=== PATIENT | male | born 1945 | race Caucasian/White ===

== ENCOUNTER 2025-02-21 08:20 | Inpatient (IN) | payer MEDICARE, OTHER ==
[~2025-02-21] VITALS: Ht 180.3 cm; Wt 84.5 kg
[2025-02-21 08:50] VITALS: PULSE 99; RESP 13; O2SAT 95
--- NOTE | 2025-02-21 09:06 | ECG ---
[facility] Test Date: 2025-02-21 Test Time: 09:04:41 Pat Name: ROSEMARIE OROFINO Department: ED Room: 0296T Gender: M Sushi Chef: JOE : 1945 Requested By: BOUCHRA COPELAND Order Number: [id number] Reading MD: Paul Zuniga Measurements Intervals [place] Rate: 88 P: 38 [place]: 171 QRS: -97 QRSD: 132 T: 8 QT: 397 QTc: 481 Interpretive Statements Sinus rhythm Right bundle branch block Inferior infarct, old Probable anterior infarct, age indeterminate Lateral leads are also involved Electronically Signed On 02-26-2025 15:46:38 PDT by Paul Zuniga Please click the below link to view image of tracing.
[2025-02-21] MEDS: SODIUM CHLORIDE 0.9% 1,000 ML IV ONE ×2 (09:07→11:00)
[2025-02-21] MEDS: PANTOPRAZOLE 40 MG/10 ML VIAL INJ IV ONE (09:20)
[2025-02-21] MEDS: ONDANSETRON HCL 4 MG/2 ML VIAL IV ONE (09:20)
--- NOTE | 2025-02-21 09:23 | ED.PDOC ---
GI ASSESSMENT HPI Comments Patient is a 79-year-old male with no significant past medical history presented to the ED with a chief complaint of rectal pain and blood in stool. Patient underwent a colonoscopy in the last week of January at the [facility] facility where a total of 30 polyps were removed from the cecum to the rectum. After the colonoscopy he to to be constipated for 3 weeks until Monday when he got enema and a lot of stool was removed. Last night patient reports to be having loose bowel movements with the associated blood. In the morning today while he was feeling his catheterization he felt dizzy following which he fell down. She also reports of having difficulty urination for the past 1 week associated with burning pain on urination. Patient denied any fever or chills. He does report of right lower quadrant abdominal pain which gets worse when he exerts pressure to pass stool or urine and has a associated rectal pain as well. Chief Complaint: Rectal Pain Time Seen by MD: 09:02 Primary Care Provider: MO Allergies: Coded Allergies: NO KNOWN ALLERGIES (Unverified , 08/15/15) Mode of Arrival: Wheelchair Past Medical History PAST MEDICAL HISTORY: Denies Surgical History: Denies all surgeries Surgical History (Other): Right knee surgery and right clavicle surgery Family History Family History: Unknown Social History Smoker: Non-Smoker Alcohol: Denies ETOH Use Drugs: Denies Drug Use Lives In: Home Constitutional: reports: fatigue, weakness EENTM: denies: blurred vision, double vision, ear bleeding, ear discharge, ear drainage, ear pain, ear ringing, eye pain, eye redness, hearing loss, mouth pain, mouth swelling, nasal discharge, nose bleeding, nose congestion, nose pain, photophobia, tearing, throat pain, throat swelling, voice changes, others Respiratory: denies: cough, hemoptysis, orthopnea, SOB at rest, shortness of breath, SOB with excertion, stridor, wheezing, others Cardiovascular: denies: chest pain, dizzy spells, diaphoresis, Dyspnea on exertion, edema, irregular heart beat, left arm pain, lightheadedness, palpitations, PND, syncope, others Gastrointestinal: reports: abdominal pain, blood streaked bowels, melena, rectal pain Genitourinary: reports: burning Neurological: reports: dizziness, fainting, weakness Musculoskeletal: denies: back pain, gout, joint pain, joint swelling, muscle pain, muscle stiffness, neck pain, others Integumetry: denies: bruises, change in color, change in hair/nails, dryness, laceration, lesions, lumps, rash, wounds, others Allergic/Immunocompromised: denies: Difficulty Healing, Frequent Infections, Hives, Itching, others Hematologic/Lymphatic: denies: anemia, blood clots, easy bleeding, easy bruising, swollen glands, others Endocrine: denies: excessive hunger, excessive sweating, excessive thirst, excessive urination, flushing, intolerance to cold, intolerance to heat, unexplained weight gain, unexplained weight loss, others Psychiatric: denies: anxiety, bipolar disorder, depression, hopeless, panic disorder, schizophrenia, sleepless, suicidal, others Physical Exam General Appearance: Mild Distress HEENT: PERRL/EOMI, Pharynx Normal Neck: Full Range of Motion, Non-Tender, Normal Respiratory: No Accessory Muscle Use, No Respiratory Distress, Normal Breath Sounds Cardiovascular: No Edema, No JVD, No Murmur, Regular Rate/Rhythm Breast Exam: Deferred Gastrointestinal: RLQ, Tenderness Genitalia: Deferred Pelvic: Deferred Rectal: Blood streaked stool, Heme positive stool, Normal rectal tone, Tenderness (anterior rectal wall boggy, tender mass) Extremities: Leg edema (Left leg edema), Slow capillary refill Neurologic: Alert, Dizziness, No Motor Deficits, No Sensory Deficits Cerebellar Function: NOT DONE Reflexes: NOT DONE Skin: Pallor Peripheral Pulses: 2+ dorsalis pedis (R); 1+ dorsalis pedis (L); 2+ Radial (R), 2+ Radial (L) Lymphatic: No Adenopathy EKG EKG : Pulse Rate (adult): 88 [place]: RAD (Extreme axis) Cardiac Rhythm: NSR Block: RBBB Hypertrophy: RVH ST: Old Was a procedure done? Was a procedure done?: No GI differential Dx Differential Diagnosis: Diverticular disease, Gastroenteritis, GI hemorrhage, Urinary Obstruction, Hypovolemia, Impaction Other Differential Diagnosis Colon polyps, prostatomegaly, colitis, diverticulitis, UTI, prostatitis X-Ray, Labs, Meds, VS Vital Signs Date Time Temp Pulse Resp B/P (MAP) Pulse Ox O2 Delivery O2 Flow Rate FiO2 02/21/25 09:04 88 02/21/25 08:50 97.6 99 13 116/74 (88) 95 97.6 02/21/25 08:50 99 13 95 Room Air* 0 21 02/21/25 08:26 97.9 117 20 103/57 (72) 94 97.9 Lab Test 02/21/25 10:11 02/21/25 09:58 02/21/25 09:11 02/21/25 09:00 Range/Units Troponin I High Sensitivity 9 10 </=54 ng/L Stool Occult Blood Positive Negative Stool Occult Blood Sample #3 Negative Urine Color Yellow Yellow Urine Clarity Turbid H Clear Urine pH 6.0 5.0-9.0 Urine Specific [place] 1.015 1.001-1.035 Urine Protein Trace H Negative Urine Ketones Negative Negative Urine Blood 3+ H Negative /uL Urine Nitrite Negative Negative Urine Bilirubin Negative Negative Urine Urobilinogen Normal Negative mg/dL Urine Leukocyte Esterase Negative Negative /uL Urine RBC 116 0 - 3 /hpf Urine WBC Clumps Present None Seen /hpf Urine Microscopic WBC 44 H 0-3 /HPF Urine Squamous Epithelial Cells Few <5 /hpf Urine Bacteria None seen None Seen /hpf Urine Creatinine 109.24 30.0-125.0 mg/dL Urine Protein/Creatinine Ratio 0.50 Urine Sodium 66 40-220 mmol/L Urine Glucose Trace Normal mg/dL Urine Total Protein 54.8 H 1-14 mg/dL White Blood Count 13.0 H 4.4-10.8 10^3/uL Red Blood Count 4.30 L 4.5-5.90 10^6/uL Hemoglobin 13.4 L 13.5-17.5 g/dL Hematocrit 40.5 L 41.0-53.0 % Mean Corpuscular Volume 94.3 80.0-100.0 fL Mean Corpuscular Hemoglobin 31.1 28.0-32.0 pg Mean Corpuscular Hemoglobin Concent 33.0 32.0-36.0 g/dL Red Cell Distribution Width 15.9 H 11.8-14.3 % Platelet Count 294 140-450 10^3/uL Mean Platelet Volume 7.2 6.9-10.8 fL Neutrophils (%) (Auto) 89.3 H 37.0-80.0 % Lymphocytes (%) (Auto) 4.1 L 10.0-50.0 % Monocytes (%) (Auto) 6.3 0.0-12.0 % Eosinophils (%) (Auto) 0.1 0.0-7.0 % Basophils (%) (Auto) 0.2 0.0-2.0 % Neutrophils # (Auto) 11.7 H 1.6-8.6 10 ^3/uL Lymphocytes # (Auto) 0.5 0.4-5.4 10 ^3/uL Monocytes # (Auto) 0.8 0-1.3 10 ^3/uL Eosinophils # (Auto) 0 0-0.8 10 ^3/uL Basophils # (Auto) 0 0-0.2 10 ^3/uL Nucleated Red Blood Cells 0.0 % Prothrombin Time 11.9 H 9.3-11.8 sec Prothrombin Time INR 1.14 0.9-1.15 Activated Partial Thromboplast Time 22.8 L 24.5-34.5 SEC Sodium Level 135 L 136-145 mmol/L Potassium Level 5.1 3.5-5.1 mmol/L Chloride Level 103 98-107 mmol/L Carbon Dioxide Level 17 L 20-31 mmol/L Anion Gap 15 5-15 Blood Urea Nitrogen 62 H 9-23 mg/dL Creatinine 3.32 H 0.700-1.30 mg/dL Glomerular Filtration Rate Calc 18 >90 mL/min BUN/Creatinine Ratio 18.7 10.0-20.0 Serum Glucose 131 H 74-106 mg/dL Lactic Acid Level 2.8 *H 0.4-2.0 mmol/L Calcium Level 9.1 8.7-10.4 mg/dL Total Bilirubin 0.4 0.2-1.0 mg/dL Aspartate Amino Transferase (AST) 28 13-40 U/L Alanine Aminotransferase (ALT) 15 7-40 U/L Alkaline Phosphatase 76 46-116 U/L Total Protein 6.5 5.7-8.2 g/dL Albumin 4.0 3.2-4.8 g/dL Lipase 30 12-53 U/L Test 02/21/25 08:43 Range/Units B-Type Natriuretic Peptide 68.69 0-100 pg/mL Current Medications Medications (Trade) Dose Ordered Sig/Ochoa Route Start Time Stop Time Status Last Admin Ondansetron HCl (Zofran) 4 mg ONCE ONCE IV 02/21/25 08:45 02/21/25 08:46 DC 02/21/25 09:20 Sodium Chloride 1,000 ml @ 1,000 mls/hr Q1H ONCE IV 02/21/25 08:45 02/21/25 09:44 DC 02/21/25 09:07 Pantoprazole Sodium (Protonix) 80 mg ONCE ONCE IV 02/21/25 08:45 02/21/25 08:46 DC 02/21/25 09:20 Patient is a 79-year-old male came to the ED with a chief complaint of rectal pain and episodes of blood in stool and an episode of syncope. Patient reported of right lower quadrant pain, dysuria, rectal pain on defecation. He appeared pale, was slightly hypotensive. Digital rectal examination revealed tender p rostate and stool occult blood positive. CT abdomen pelvis with IV contrast showed 5.5 cm abdominal aortic aneurysm, Moderate colonic diverticulosis, WBC count elevated and hemoglobin level was at 13.2 g/dL , elevated lactic acid following which vision was given 2 L of fluid and IV antibiotics. Patient had DARLING on possible underlying CKD with FENa 1.5%. Patient will need further inpatient evaluation and management for which he agrees. Time of 1ST Reevaluation: 09:46 Reevaluation 1ST: Improved Patient Education/Counseling: Diagnosis, Treatment Family Education/Counseling: No Family Present SEPSIS Sepsis Screen Date sepsis recognized/suspect: Feb 21, 2025 Time Sepsis recognized/suspect: 825 Recent Procedure: No On Antibiotic Therapy: No Respiratory Rate >20: No Heart Rate >90: Yes Temp<36 C (96.8 F) or >38.3 C: No SBP <90 or MAP <65 mmHG: No New Acute Mental Status Change: No Is the patient on CPAP, BIPAP,: No Physician Orders Chest Portable (02/21/25 08:43) Blood Culture (02/21/25 08:43) Troponin-I Hs (02/21/25 11:43) Electrocardigram (02/21/25 09:43) Electrocardigram (02/21/25 11:43) Head Without Contrast (02/21/25 08:43) Type And Screen (02/21/25 08:43) Insert/Manage Urinary Catheter QSHIFT (02/21/25 09:39) Ct Ab Pel Wo Con-No Oral Or Iv (02/21/25 09:56) Sodium Chloride 0.9% (02/21/25 11:00) Urine Bacterial Culture (02/21/25 11:06) Levofloxacin 500mg (Levaquin 500mg/ 100m (02/21/25 11:15) Metronidazole 500mg/100ml (Flagyl 500mg/ (02/21/25 11:15) Vital Signs Date Time Temp Pulse Resp B/P (MAP) Pulse Ox O2 Delivery O2 Flow Rate FiO2 02/21/25 09:04 88 02/21/25 08:50 97.6 99 13 116/74 (88) 95 97.6 02/21/25 08:50 99 13 95 Room Air* 0 21 02/21/25 08:26 97.9 117 20 103/57 (72) 94 97.9 Laboratory Tests Test 02/21/25 09:00 Lactic Acid Level 2.8 mmol/L (0.4-2.0) *H White Blood Count 13.0 10^3/uL (4.4-10.8) H Medications Medications Dose Ordered Sig/Ochoa Route Start Time Stop Time Status Last Admin Dose Admin Ondansetron HCl 4 mg ONCE ONCE IV 02/21/25 08:45 02/21/25 08:46 DC 02/21/25 09:20 Pantoprazole Sodium 80 mg ONCE ONCE IV 02/21/25 08:45 02/21/25 08:46 DC 02/21/25 09:20 Sodium Chloride 1,000 ml @ 1,000 mls/hr Q1H ONCE IV 02/21/25 08:45 02/21/25 09:44 DC 02/21/25 09:07 Departure 1 Departure Time of Disposition: 11:26 Impression: Primary Impression: Rectal bleed Additional Impressions: Acute kidney injury superimposed on CKD Urinary tract infection Colon, diverticulosis History of colon polyps Vasovagal syncope Abdominal aortic aneurysm Disposition: 09 ADMITTED INPATIENT Condition: Stable Critical Care Note Critical Care Time?: No Stability Stability form required: No Heart Score Heart Score: Heart Score Response (Comments) Value History N/A 0 EKG N/A 0 Age N/A 0 Risk Factors N/A 0 Troponin N/A 0 Total 0 ROMEO VILLANUEVA RESIDENT Feb 21, 2025 09:23
[2025-02-21 09:28] LABS: Hematocrit 40.5 % (41.0-53.0); Hemoglobin 13.4 g/dL (13.5-17.5); Mean Corpuscular Hemoglobin 31.1 pg (28.0-32.0); Mean Corpuscular Volume 94.3 fL (80.0-100.0); Nucleated Red Blood Cells % 0.0 %
[2025-02-21 09:45] LABS: Alanine Aminotransferase 15 U/L (7-40); Albumin 4.0 g/dL (3.2-4.8); Alkaline Phosphatase 76 U/L (46-116); Anion Gap 15 (5-15); Calcium 9.1 mg/dL (8.7-10.4); Chloride 103 mmol/L (98-107); Potassium 5.1 mmol/L (3.5-5.1)
[2025-02-21 09:47] LABS: INR 1.14 (0.9-1.15); Partial Thromboplastin Time 22.8 SEC (24.5-34.5); Prothrombin Time 11.9 sec (9.3-11.8)
[2025-02-21 09:51] LABS: Carbon Dioxide 17 mmol/L (20-31); Glucose 131 mg/dL (74-106); Sodium 135 mmol/L (136-145)
[2025-02-21 09:52] LABS: Lactic Acid w/Reflex 2.8 mmol/L (0.4-2.0)
[2025-02-21 10:11] LABS: BUN/Creatinine Ratio 18.7 (10.0-20.0); Blood Urea Nitrogen 62 mg/dL (9-23); Total Protein 6.5 g/dL (5.7-8.2)
[2025-02-21 10:13] LABS: Bilirubin, Total 0.4 mg/dL (0.2-1.0)
--- NOTE | 2025-02-21 10:24 | DVH ---
CHEST RADIOGRAPH Indication: abdominal pain Technique: Single frontal view of the chest was obtained COMPARISON: None FINDINGS: Lines and Tubes: None Lungs: Increased interstitial prominence Pleura: No effusion. No pneumothorax. Cardiomediastinal contours: Cardiomegaly Bones: Left clavicle plate and screw fixation. IMPRESSION: Pulmonary vascular congestion
[2025-02-21 10:28] LABS: Urine Protein, UAD TRACE (Negative); Urine WBC Clumps PRESENT /hpf (None Seen)
[2025-02-21 10:34] LABS: Lipase 30 U/L (12-53)
--- NOTE | 2025-02-21 10:42 | DVH ---
CT CT AB PEL WO CON-NO ORAL OR IV INDICATION: ABDOMINAL PAIN; BRBPR EXAM DATE: 02/21/2025 09:59 AM COMPARISON: None RADIATION DOSE: CTDIvol: 8.79 mGy, DLP: 475.62 mGy*cm PROCEDURE: Helical CT images were obtained of the abdomen and pelvis without IV contrast Sagittal and coronal reconstructions are provided. ORAL CONTRAST: None. ADDITIONAL IMAGES / REFORMATS: None All C T scans at this medical facility are performed using dose modulation techniques as appropriate to a p erformed exam including the following: Automated exposure control was utilized; adjustment of the MA and/or KV according to patient size; and use of iterative reconstruction technique. FINDINGS: LUNG BASE: Bibasilar subpleural reticulation and ground glass opacity can be seen with interstitial l rené disease. LIVER: Normal. GALLBLADDER AND BILIARY TREE: Gallstones are seen. No intra- or extrahepatic biliary ductal dilation. PANCREAS: Normal. SPLEEN: Normal. BOWEL: Moderate colonic diverticulosis. Normal appendix. ADRENALS: 1.0 cm left adrenal nodule. KIDNEYS AND URETER: Normal. BLADDER: Paige. REPRODUCTIVE ORGANS: Normal. LYMPH NODES:No lymphadenopathy. PERITONEUM: No ascites or free air. No other fluid collection. VESSELS: Scattered atherosclerotic calcifications are noted. 5.5 cm abdominal aortic aneurysm. RETROPERITONEUM: Normal. ABDOMINAL WALL: Normal. BONES: Scattered osseous degenerative changes are noted. Old compression deformity of T12, severe. IMPRESSION: 5.5 cm abdominal aortic aneurysm. Moderate colonic diverticulosis.
[2025-02-21 10:44] LABS: Protein, Urine 54.8 mg/dL (1-14)
--- NOTE | 2025-02-21 10:49 | DVH ---
EXAM: CT HEAD WITHOUT CONTRAST INDICATION: Syncope TECHNIQUE: CT of the head without intravenous contrast. Coronal and sagittal reformatted images are s ubmitted. Radiation Dose : 1. Head: CT Dose: CTDI volume is 60.1 mGy. Dose-length product is 1076.65 mGy*cm The dose indicators for CT are the volume Computed Tomography (CT) Dose Index (CTDIvol) and the Dose Length Product (DLP), and are measured in units of mGy and mGy-cm, respectively. These indicators are not patient dose, but values generated from the CT scanner acquisition factors. The report includes radiation exposure data for exposures received during this examination. All CT scans at this medical facility are performed using dose modulation techniques as appropriate to a performed exam including the following: Automated exposure control was utilized; adjustment of the MA and/or KV according to patient size; and use of iterative reconstruction technique. COMPARISON: None FINDINGS: There is no evidence of acute intracranial hemorrhage, extra-axial collection, mass effect, midline s hift, herniation or hydrocephalus. The ventricles, sulci and cisterns are age appropriate. The verde-white differentiation is intact. Partial opacification of the mastoid air cells. The paranasal sinuses are clear. No depressed calvarial fracture. The surrounding soft tissues are unremarkable. IMPRESSION: 1. No acute intracranial abnormality. 2. Partial opacification of the mastoid air cells.
[2025-02-21 11:00] VITALS: PULSE 75; RESP 18; O2SAT 92
[2025-02-21] MEDS ORDERED: ACETAMINOPHEN 325 MG TAB PO PRN (13:15)
[2025-02-21] MEDS ORDERED: HYDROcodone-ACET 5/325MG TAB PO PRN (13:15)
[2025-02-21] MEDS ORDERED: ONDANSETRON HCL 4 MG/2 ML VIAL IV PRN (13:15)
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
--- NOTE | 2025-02-21 13:42 | DVH ---
CLINICAL INDICATION: s/p fall TECHNIQUE: AP and lateral views of the left humerus were performed. XY L HUMERUS XRAY Comparison: None FINDINGS/IMPRESSION: 1. No acute fracture of the left humerus. 2. Moderate glenohumeral osteoarthritis with joint space narrowing and marginal osteophytes inferiorl y. 3. Mild acromioclavicular hypertrophy. 4. Postoperative changes of plate and screw fixation of the left clavicle, not fully imaged here.
[2025-02-21 14:07] LABS: Iron 57.0 ug/dL (65-175)
[2025-02-21 14:14] LABS: Total Iron Binding Capacity 200.0 ug/dL (250-425)
[2025-02-21] MEDS: SODIUM CHLORIDE 0.9% 1,000 ML IV SCH (15:00)
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
[2025-02-21 20:00] VITALS: O2SAT 92
[2025-02-21] MEDS: PANTOPRAZOLE 40 MG/10 ML VIAL INJ IV SCH (22:53)
[2025-02-21 22:58] VITALS: BP 118/62; PULSE 62; RESP 16; RESP 17; TEMP 98; O2SAT 94; O2SAT 98
[2025-02-22] VITALS (12 sets, daily range): BP systolic 93–136; BP diastolic 53–72; PULSE 57–120; RESP 17–20; TEMP 97.5–98.1; O2SAT 94–99
[2025-02-22 07:52] LABS: Hematocrit 28.5 % (41.0-53.0); Hemoglobin 9.5 g/dL (13.5-17.5); Mean Corpuscular Hemoglobin 31.5 pg (28.0-32.0); Mean Corpuscular Volume 94.3 fL (80.0-100.0); Nucleated Red Blood Cells % 0.1 %
[2025-02-22 08:14] LABS: Alanine Aminotransferase 10 U/L (7-40); Alkaline Phosphatase 55 U/L (46-116); Anion Gap 9 (5-15); BUN/Creatinine Ratio 30.4 (10.0-20.0); Carbon Dioxide 22 mmol/L (20-31); Glucose 96 mg/dL (74-106); Potassium 4.4 mmol/L (3.5-5.1)
[2025-02-22 08:15] LABS: Bilirubin, Total 0.5 mg/dL (0.2-1.0)
[2025-02-22 08:16] LABS: Albumin 2.9 g/dL (3.2-4.8); Blood Urea Nitrogen 41 mg/dL (9-23); Calcium 8.7 mg/dL (8.7-10.4); Chloride 114 mmol/L (98-107); Sodium 145 mmol/L (136-145); Total Protein 4.7 g/dL (5.7-8.2)
[2025-02-22] MEDS ORDERED: SODIUM CHLORIDE 0.9% 1,000 ML IV ONE (11:45)
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
[2025-02-22] MEDS: SOD CHL 0.45% 1,000 ML IV SCH (14:00)
--- NOTE | 2025-02-22 14:45 | DVHPN2 ---
Assessment/Plan Assessment/Plan progress note 79 M with AAA, HLD, [place] [facility] [place] admitted for GI bleed. also has orthostatic presyncope s/p fall. physical exam aox4 PERLLA pale conjunctiva dry mucous membranes no JVD clear breath sounds s1 s2 rrr abdomen soft ankle edema LLE labs ekg imaging reviewed assessment and plan LGIB acute anemia blood loss poliposis w/ removal? diverticulosis orthostatic hypotension s/p mech fall urinary retention constipation DARLING hemodynamic on CKD improving hx AAA cbc q12 iv fluid bolus and maintenance transfuse if tachy or <7 type and screen protonix resume bowel reg once bleeding stopped gi consult trend cr c/w ceft flagyl for now diet renal dvt ppx SCD full code Plan discussed with: Patient My Orders Orders - ANGEL AIKEN MD Procedure Category Date Status Time Complete Blood Count LAB 02/22/25 Logged 14:30 Complete Blood Count LAB 02/23/25 Verified 04:00 Lactated Ringer's PHA 02/22/25 In Process 14:30 Orthostatic Vital ORDERS 02/22/25 Transmitted Signs 14:30 Date of Service: Feb 22, 2025 Billing Provider: ANGEL AIKEN MD Common Visit Codes: [id number] INP/OBS CARE(HIGH) ANGEL AIKEN MD Feb 22, 2025 14:45
[2025-02-22] MEDS: LACTATED RINGER'S 1,000 ML IV ONE (14:53)
[2025-02-22 15:39] LABS: Hematocrit 28.8 % (41.0-53.0); Hemoglobin 9.8 g/dL (13.5-17.5); Mean Corpuscular Hemoglobin 31.8 pg (28.0-32.0); Mean Corpuscular Volume 93.8 fL (80.0-100.0); Nucleated Red Blood Cells % 0.0 %
--- NOTE | 2025-02-22 17:11 | DVHPN2 ---
Progress Note - Dictate Date Seen: Feb 22, 2025 Medical Necessity Reason Pt with a Central, PICC or Fol: No Subjective No new complaints H/H dropped to 9.5 but is upto 9.8 today Renal fx improving,leukocytosis and lactic acidosis improving Patient still had multiple bloody bowel movements last night and this morning but it appears to be slowing down vital signs Vital Sign Date Time Temp Pulse Resp B/P (MAP) Pulse Ox O2 Delivery O2 Flow Rate FiO2 02/22/25 13:00 98.1 62 20 116/72 (87) 95 98.1 02/21/25 22:58 Nasal Cannula* 2 28 Total Intake and Output 02/21/25 02/21/25 02/22/25 15:00 23:00 07:00 Intake Total 2200 ml 220 ml 220 ml Output Total 1300 ml 800 ml 800 ml Balance 900 ml -580 ml -580 ml medications Current Medications Medications Dose Ordered Sig/Ochoa Route Start Time Stop Time Status Last Admin Dose Admin Metronidazole 100 ml @ 100 mls/hr Q8HR IV 02/21/25 14:00 02/22/25 14:59 100 MLS/HR Levofloxacin/ Dextrose 100 ml @ 100 mls/hr DAILY IV 02/22/25 10:00 02/22/25 10:58 100 MLS/HR Pantoprazole Sodium 40 mg BID IV 02/21/25 22:00 02/22/25 10:58 40 MG Sodium Chloride 1,000 ml @ 75 mls/hr [id number] IV 02/22/25 12:00 02/22/25 14:00 75 MLS/HR objective General Appearance: Alert, Oriented X3, Cooperative, No acute distress HEENT: Atraumatic, PERRLA, EOMI, Mucous membr. moist/pink;mild pallor Respiratory: Normal air movement Cardiovascular: Normal S1, Normal S2; hemodynamically stable Abdominal: Normal bowel sounds, Soft Extremities: No clubbing, No cyanosis, Normal pulses Neuro: Normal speech, Strength at 5/5 X4 ext, Normal tone, Sensation intact Psych/Mental Status: Mental status NL, Mood NL laboratory and microbiology Laboratory Tests 02/22/25 15:11 02/22/25 06:21 Test 02/22/25 06:21 Range/Units Serum Glucose 96 74-106 mg/dL Problems(with codes): (1) Acute kidney injury superimposed on CKD (2) Rectal bleed (3) Abdominal aortic aneurysm (4) Colon, diverticulosis (5) Vasovagal syncope (6) History of colon polyps Prognosis Plan Continue liquid diet until his bleeding resolves IV Protonix 40 mg q.12 hours Serial H&H Transfused 1 unit PRBC if hemoglobin drops below 7.5 IV antibiotics with Levaquin and Flagyl Awaiting urine culture and blood culture reports Plan discussed with: Other (Nurse [facility]) MEGHANN PAZ MD Feb 22, 2025 17:11
[2025-02-23] VITALS (9 sets, daily range): BP systolic 93–143; BP diastolic 51–95; PULSE 50–98; RESP 17–19; TEMP 97.7–98.3; O2SAT 90–98
[2025-02-23 07:18] LABS: Hematocrit 25.5 % (41.0-53.0); Hemoglobin 8.7 g/dL (13.5-17.5); Mean Corpuscular Hemoglobin 32.0 pg (28.0-32.0); Mean Corpuscular Volume 94.0 fL (80.0-100.0); Nucleated Red Blood Cells % 0.0 %
[2025-02-23 07:35] LABS: Potassium 3.8 mmol/L (3.5-5.1); Sodium 143 mmol/L (136-145)
[2025-02-23 07:36] LABS: Anion Gap 8 (5-15); Carbon Dioxide 24 mmol/L (20-31)
[2025-02-23 07:41] LABS: BUN/Creatinine Ratio 28.4 (10.0-20.0); Blood Urea Nitrogen 19 mg/dL (9-23); Glucose 87 mg/dL (74-106)
[2025-02-23 07:44] LABS: Calcium 8.4 mg/dL (8.7-10.4); Chloride 111 mmol/L (98-107)
--- NOTE | 2025-02-23 08:59 | DVHPN2 ---
Progress Note Date Seen: Feb 23, 2025 Medical Necessity Reason Pt with a Central, PICC or Fol: No Subjective Patient reports: Feels better Objective vital signs Vital Sign Date Time Temp Pulse Resp B/P (MAP) Pulse Ox O2 Delivery O2 Flow Rate FiO2 02/23/25 05:00 97.8 55 17 112/68 (83) 98 97.8 02/22/25 20:01 Room Air* 0 21 Total Intake and Output 02/22/25 02/22/25 02/23/25 15:00 23:00 07:00 Intake Total 600 ml 620 ml 1010 ml Output Total 375 ml 900 ml Balance 600 ml 245 ml 110 ml medications Current Medications Medications Dose Ordered Sig/Ochoa Route Start Time Stop Time Status Last Admin Dose Admin Metronidazole 100 ml @ 100 mls/hr Q8HR IV 02/21/25 14:00 02/23/25 05:22 100 MLS/HR Levofloxacin/ Dextrose 100 ml @ 100 mls/hr DAILY IV 02/22/25 10:00 02/23/25 08:51 100 MLS/HR Pantoprazole Sodium 40 mg BID IV 02/21/25 22:00 02/23/25 08:52 40 MG Sodium Chloride 1,000 ml @ 75 mls/hr [id number] IV 02/22/25 12:00 02/23/25 03:19 75 MLS/HR Examination: GENERAL:Normal, CVS:Normal, ABDOMEN:Normal laboratory and microbiology Laboratory Tests 02/23/25 06:24 Test 02/23/25 06:24 Range/Units Serum Glucose 87 74-106 mg/dL Microbiology Date/Time Source Procedure Growth Status 02/21/25 09:11 Urine - [place] [place] Urine Culture - Final Complete 02/21/25 09:00 Blood Blood Culture - Preliminary NO GROWTH AFTER 24 HOURS OF INCUBATION. Resulted Problem List/Assessment/Plan Problem List/Assessment/Plan 79-year-old male no previous history of kidney disease presents to the hospital complaining of bloody stools after severe constipation. He was diagnosed with colonic diverticulosis. Nephrology consulted due to elevated creatinine level. Acute kidney injury hemodynamically mediated prerenal in the setting of volume depletion Gastrointestinal bleed likely lower in the setting of diverticulosis and constipation AAA 5.5 cm noted on CAT scan No previous CKD history hypernatremia DARLING is resolved with volume replacement Monitor H&H daily and transfuse p.r.n. gastroenterology Continue IV fluid hydration Avoid hypotension Maintain mean arterial pressure greater than 65 Avoid contrast and NSAIDs No emergent indication for hemodialysis at this time we will monitor closely Plan discussed with: Patient My Orders My Orders Orders - INEZ STATON MD Procedure Category Date Status Time Sod Chl 0.45% (Sodium PHA 02/22/25 In Process Chloride 0.45% Via 12:00 Total Time (mins): 33 INEZ STATON MD Feb 23, 2025 08:59
--- NOTE | 2025-02-23 14:30 | DVHPN2 ---
Assessment/Plan Assessment/Plan progress note 79 M with AAA, HLD, [place] admitted for GI bleed. also has orthostatic presyncope s/p fall. seen today, orthostatic negative after bolus, c/w maintenance physical exam aox4 PERLLA pale conjunctiva dry mucous membranes no JVD clear breath sounds s1 s2 rrr abdomen soft ankle edema LLE labs ekg imaging reviewed assessment and plan LGIB acute anemia blood loss poliposis w/ removal? diverticulosis orthostatic hypotension s/p mech fall urinary retention constipation DARLING hemodynamic resolved hx AAA cbc q12 iv fluid bolus and maintenance transfuse if tachy or <7 type and screen protonix resume bowel reg once bleeding stopped gi consult trend cr c/w ceft flagyl for now diet renal dvt ppx SCD full code Plan discussed with: Patient My Orders Orders - ANGEL AIKEN MD Procedure Category Date Status Time Orthostatic Vital ORDERS 02/22/25 Transmitted Signs 14:30 Transfer Orders XFER 02/22/25 Transmitted 14:45 Date of Service: Feb 23, 2025 Billing Provider: ANGEL AIKEN MD Common Visit Codes: [id number] INP/OBS CARE(HIGH) ANGEL AIKEN MD Feb 23, 2025 14:29
[2025-02-24] VITALS (8 sets, daily range): BP systolic 87–133; BP diastolic 47–73; PULSE 52–73; RESP 16–18; TEMP 97.4–98.5; O2SAT 91–98
[2025-02-24 07:39] LABS: Hematocrit 25.6 % (41.0-53.0); Hemoglobin 8.9 g/dL (13.5-17.5); Mean Corpuscular Hemoglobin 32.2 pg (28.0-32.0); Mean Corpuscular Volume 93.0 fL (80.0-100.0); Nucleated Red Blood Cells % 0.0 %
[2025-02-24 07:49] LABS: Anion Gap 8 (5-15); Carbon Dioxide 25 mmol/L (20-31); Potassium 3.7 mmol/L (3.5-5.1); Sodium 141 mmol/L (136-145)
[2025-02-24 07:50] LABS: Calcium 8.3 mg/dL (8.7-10.4); Chloride 108 mmol/L (98-107)
[2025-02-24 07:55] LABS: BUN/Creatinine Ratio 17.9 (10.0-20.0); Blood Urea Nitrogen 10 mg/dL (9-23); Glucose 87 mg/dL (74-106)
--- NOTE | 2025-02-24 10:20 | DVHPN2 ---
Progress Note Date Seen: Feb 24, 2025 Medical Necessity Reason Pt with a Central, PICC or Fol: No Subjective Review of Systems: GI:Normal Objective vital signs Vital Sign Date Time Temp Pulse Resp B/P (MAP) Pulse Ox O2 Delivery O2 Flow Rate FiO2 02/24/25 10:02 97.8 59 18 102/56 (71) 91 97.8 91/55 (67) 87/47 (60) 02/24/25 08:00 Room Air* 0 21 Total Intake and Output 02/23/25 02/23/25 02/24/25 15:00 23:00 07:00 Intake Total 100 ml 860 ml 680 ml Output Total 300 ml 675 ml Balance 100 ml 560 ml 5 ml medications Current Medications Medications Dose Ordered Sig/Ochoa Route Start Time Stop Time Status Last Admin Dose Admin Metronidazole 100 ml @ 100 mls/hr Q8HR IV 02/21/25 14:00 02/24/25 05:11 100 MLS/HR Levofloxacin/ Dextrose 100 ml @ 100 mls/hr DAILY IV 02/22/25 10:00 02/24/25 08:40 100 MLS/HR Pantoprazole Sodium 40 mg BID IV 02/21/25 22:00 02/24/25 08:40 40 MG Sodium Chloride 1,000 ml @ 75 mls/hr [id number] IV 02/22/25 12:00 02/24/25 05:00 75 MLS/HR Examination: GENERAL:Normal, CVS:Normal, SKIN:Normal laboratory and microbiology Laboratory Tests 02/24/25 06:50 Test 02/24/25 06:50 Range/Units Serum Glucose 87 74-106 mg/dL Microbiology Date/Time Source Procedure Growth Status 02/21/25 09:11 Urine - [place] Urine Culture - Final Complete 02/21/25 09:00 Blood Blood Culture - Preliminary NO GROWTH AFTER 72 HOURS OF INCUBATION. Resulted Problem List/Assessment/Plan Problem List/Assessment/Plan 79-year-old male no previous history of kidney disease presents to the hospital complaining of bloody stools after severe constipation. He was diagnosed with colonic diverticulosis. Nephrology consulted due to elevated creatinine level. Acute kidney injury hemodynamically mediated prerenal in the setting of volume depletion Gastrointestinal bleed likely lower in the setting of diverticulosis and constipation AAA 5.5 cm noted on CAT scan No previous CKD history hypernatremia DARLING is resolved with volume replacement Monitor H&H daily and transfuse p.r.n. gastroenterology Continue IV fluid hydration Avoid hypotension Maintain mean arterial pressure greater than 65 Avoid contrast and NSAIDs Plan discussed with: Patient Total Time (mins): 26 INEZ STATON MD Feb 24, 2025 10:20
--- NOTE | 2025-02-24 14:56 | DVHPN2 ---
Assessment/Plan Assessment/Plan progress note 79 M with AAA, HLD, [place] admitted for GI bleed. also has orthostatic presyncope s/p fall. seen today, no more blood in stool. pending GI clearance. physical exam aox4 PERLLA pale conjunctiva dry mucous membranes no JVD clear breath sounds s1 s2 rrr abdomen soft ankle edema LLE labs ekg imaging reviewed assessment and plan LGIB acute anemia blood loss poliposis w/ removal? diverticulosis orthostatic hypotension s/p mech fall urinary retention constipation DARLING hemodynamic resolved hx AAA cbc q12 iv fluid bolus and maintenance transfuse if tachy or <7 type and screen protonix resume bowel reg once bleeding stopped gi consult trend cr c/w ceft flagyl for now diet renal dvt ppx SCD full code Plan discussed with: Patient Date of Service: Feb 24, 2025 Billing Provider: ANGEL AIKEN MD Common Visit Codes: [id number] INP/OBS CARE(HIGH) ANGEL AIKEN MD Feb 24, 2025 14:56
--- NOTE | 2025-02-24 18:57 | DVHPN2 ---
Progress Note - Dictate Date Seen: Feb 24, 2025 Medical Necessity Reason Pt with a Central, PICC or Fol: No Subjective 79 M with AAA, HLD, [place] admitted for post polypectomy GI bleed. also has orthostatic presyncope s/p fall. No new complaints; no more blood in stool. H/H stabilized at 8.9; stool for occult blood was positive Renal fx improving,leukocytosis and lactic acidosis improving Patient has evidence of UTI on IV antibiotics; urine culture negative vital signs Vital Sign Date Time Temp Pulse Resp B/P (MAP) Pulse Ox O2 Delivery O2 Flow Rate FiO2 02/24/25 17:00 98.5 60 18 123/71 (88) 98 98.5 02/24/25 08:00 Room Air* 0 21 Total Intake and Output 02/23/25 02/23/25 02/24/25 15:00 23:00 07:00 Intake Total 100 ml 860 ml 680 ml Output Total 300 ml 675 ml Balance 100 ml 560 ml 5 ml medications Current Medications Medications Dose Ordered Sig/Ochoa Route Start Time Stop Time Status Last Admin Dose Admin Metronidazole 100 ml @ 100 mls/hr Q8HR IV 02/21/25 14:00 02/24/25 14:40 100 MLS/HR Levofloxacin/ Dextrose 100 ml @ 100 mls/hr DAILY IV 02/22/25 10:00 02/24/25 08:40 100 MLS/HR Pantoprazole Sodium 40 mg BID IV 02/21/25 22:00 02/24/25 08:40 40 MG Sodium Chloride 1,000 ml @ 75 mls/hr [id number] IV 02/22/25 12:00 02/24/25 18:35 75 MLS/HR objective General Appearance: Alert, Oriented X3, Cooperative, No acute distress HEENT: Atraumatic, PERRLA, EOMI, Mucous membr. moist/pink;mild pallor Respiratory: Normal air movement Cardiovascular: Normal S1, Normal S2; hemodynamically stable Abdominal: Normal bowel sounds, Soft Extremities: No clubbing, No cyanosis, Normal pulses Neuro: Normal speech, Strength at 5/5 X4 ext, Normal tone, Sensation intact Psych/Mental Status: Mental status NL, Mood NL laboratory and microbiology Laboratory Tests 02/24/25 06:50 Test 02/24/25 06:50 Range/Units Serum Glucose 87 74-106 mg/dL Problems(with codes): (1) Acute kidney injury superimposed on CKD (2) History of colon polyps (3) Rectal bleed (4) Abdominal aortic aneurysm (5) Colon, diverticulosis (6) Vasovagal syncope (7) Urinary tract infection Prognosis Plan Advance diet as tolerated to soft diet Continue supportive care Discharge planning as per hospitalist Avoid aspirin and NSAIDs and blood thinners [facility] and discuss further management Plan discussed with: Other (None) MEGHANN PAZ MD Feb 24, 2025 18:57
[2025-02-25 01:00] VITALS: BP 120/72; PULSE 57; RESP 18; TEMP 98.6; O2SAT 97
[2025-02-25 05:00] VITALS: BP_SYST 126; BP_SYST 89; BP_SYST 92; BP_DIAS 56; BP_DIAS 88; PULSE 54; RESP 18; TEMP 97.8; O2SAT 98
[2025-02-25 06:32] LABS: Hematocrit 27.1 % (41.0-53.0); Hemoglobin 9.3 g/dL (13.5-17.5); Mean Corpuscular Hemoglobin 32.1 pg (28.0-32.0); Mean Corpuscular Volume 93.0 fL (80.0-100.0); Nucleated Red Blood Cells % 0.0 %
[2025-02-25 08:00] VITALS: PULSE 70; RESP 18; O2SAT 96
[2025-02-25 08:53] VITALS: BP_SYST 106; BP_SYST 88; BP_SYST 91; BP_DIAS 53; BP_DIAS 54; BP_DIAS 57; PULSE 69; RESP 18; TEMP 97.6; O2SAT 96
[2025-02-25] MEDS ORDERED: FER325T PO (09:01)
[2025-02-25] MEDS ORDERED: PANT40TA2 PO (09:01)
[2025-02-25] MEDS ORDERED: LEVO500T91 PO (09:01)
[2025-02-25] MEDS ORDERED: POLY335015 PO (09:01)
[2025-02-25 12:39] VITALS: BP 125/72; PULSE 82; RESP 18; TEMP 98; O2SAT 93
--- NOTE | 2025-02-25 13:29 | DVHDS2 ---
Discharge Summary Date of Admission Feb 21, 2025 at 13:01 Date of Discharge: Feb 25, 2025 Labs/Diagnostic Data: Laboratory Results Test 02/25/25 03:53 02/24/25 06:50 02/22/25 06:21 02/21/25 13:39 White Blood Count 6.5 10^3/uL (4.4-10.8) Red Blood Count 2.91 10^6/uL (4.5-5.90) Hemoglobin 9.3 g/dL (13.5-17.5) Hematocrit 27.1 % (41.0-53.0) Mean Corpuscular Volume 93.0 fL (80.0-100.0) Mean Corpuscular Hemoglobin 32.1 pg (28.0-32.0) Mean Corpuscular Hemoglobin Concent 34.5 g/dL (32.0-36.0) Red Cell Distribution Width 15.8 % (11.8-14.3) Platelet Count 216 10^3/uL (140-450) Mean Platelet Volume 7.4 fL (6.9-10.8) Neutrophils (%) (Auto) 59.7 % (37.0-80.0) Lymphocytes (%) (Auto) 18.5 % (10.0-50.0) Monocytes (%) (Auto) 9.2 % (0.0-12.0) Eosinophils (%) (Auto) 11.7 % (0.0-7.0) Basophils (%) (Auto) 0.9 % (0.0-2.0) Neutrophils # (Auto) 3.9 10 ^3/uL (1.6-8.6) Lymphocytes # (Auto) 1.2 10 ^3/uL (0.4-5.4) Monocytes # (Auto) 0.6 10 ^3/uL (0-1.3) Eosinophils # (Auto) 0.8 10 ^3/uL (0-0.8) Basophils # (Auto) 0.1 10 ^3/uL (0-0.2) Nucleated Red Blood Cells 0.0 % Sodium Level 141 mmol/L (136-145) Potassium Level 3.7 mmol/L (3.5-5.1) Chloride Level 108 mmol/L (98-107) Carbon Dioxide Level 25 mmol/L (20-31) Anion Gap 8 (5-15) Blood Urea Nitrogen 10 mg/dL (9-23) Creatinine 0.56 mg/dL (0.700-1.30) Glomerular Filtration Rate Calc 102 mL/min (>90) BUN/Creatinine Ratio 17.9 (10.0-20.0) Serum Glucose 87 mg/dL (74-106) Calcium Level 8.3 mg/dL (8.7-10.4) Total Bilirubin 0.5 mg/dL (0.2-1.0) Aspartate Amino Transferase (AST) 20 U/L (13-40) Alanine Aminotransferase (ALT) 10 U/L (7-40) Alkaline Phosphatase 55 U/L (46-116) Total Protein 4.7 g/dL (5.7-8.2) Albumin 2.9 g/dL (3.2-4.8) Iron Level 57 ug/dL (65-175) Total Iron Binding Capacity 200 ug/dL (250-425) Percent Iron Saturation 28.5 % (20-55) Test 02/21/25 12:22 02/21/25 09:58 02/21/25 09:11 02/21/25 09:00 Lactic Acid Level 1.8 mmol/L (0.4-2.0) Troponin I High Sensitivity 8 ng/L (</=54) Stool Occult Blood Positive (Negative) Stool Occult Blood Sample #3 (Negative) Urine Color Yellow (Yellow) Urine Clarity Turbid (Clear) Urine pH 6.0 (5.0-9.0) Urine Specific [place] 1.015 (1.001-1.035) Urine Protein Trace (Negative) Urine Ketones Negative (Negative) Urine Blood 3+ /uL (Negative) Urine Nitrite Negative (Negative) Urine Bilirubin Negative (Negative) Urine Urobilinogen Normal mg/dL (Negative) Urine Leukocyte Esterase Negative /uL (Negative) Urine RBC 116 /hpf (0 - 3) Urine WBC Clumps Present /hpf (None Seen) Urine Microscopic WBC 44 /HPF (0-3) Urine Squamous Epithelial Cells Few /hpf (<5) Urine Bacteria None seen /hpf (None Seen) Urine Creatinine 109.24 mg/dL (30.0-125.0) Urine Protein/Creatinine Ratio 0.50 Urine Sodium 66 mmol/L (40-220) Urine Glucose Trace mg/dL (Normal) Urine Total Protein 54.8 mg/dL (1-14) Reticulocyte Count (auto) 0.64 % (0.5-1.5) Prothrombin Time 11.9 sec (9.3-11.8) Prothrombin Time INR 1.14 (0.9-1.15) Activated Partial Thromboplast Time 22.8 SEC (24.5-34.5) Lipase 30 U/L (12-53) Test 02/21/25 08:43 B-Type Natriuretic Peptide 68.69 pg/mL (0-100) Other Laboratory Tests 02/25/25 03:53 02/24/25 06:50 Brief Hx & Hospital Course: 79 M with AAA, HLD, prior colon[place] [facility] 01/2025 admitted for GI bleed. also has orthostatic presyncope s/p fall. given iv fluids. stable h/h, bleeding stop. seen by GI, cleared for DC to follow up [facility]. Condition at Discharge: Good Final Diagnosis/Problems List LGIB acute anemia blood loss poliposis w/ removal? diverticulosis orthostatic hypotension s/p mech fall urinary retention UTI? constipation [place]AR[place] hemodynamic resolved hx AAA Discharge Disposition: Home Discharge Instruct/Medications Diet: Consistent carbohydrate, Cardiac 2g Na,low cholest Diet comment: cardiac 2g Na, low cholesterol, consistent carbohydrate Activity: No Restrictions, As Tolerated Follow Up/Referral: [facility] Scheduled Ferrous Sulfate (Ferrous Sulfate), 1 TAB PO DAILY Levofloxacin Hemihydrate (Levofloxacin), 1 TAB PO DAILY Pantoprazole Sodium Sesquihydr (Protonix), 40 MG PO BID Scheduled PRN Polyethylene Glycol 3350 (Miralax), 17 GM PO DAILYP PRN Discharge Statement: "Patient was advised to return to the ER or call 911 if any headaches, dizziness, shortness of breath, chest pain, abdominal pain, bleeding, fevers, or worsening of medical condition. Patient was counseled about treatment plan, medications, possible side effects, patientverbalized understanding. All questions were answered to the best of my ability. This discharge took greater then 30 minutes in planning, reviewing documentation, counseling the patient, and discussing with other team members." ASSESSMENT ASSESSMENT Assessment LGIB resolved UTI? sepsis dehydration [place] hemodynamic resolved Date of Service: Feb 25, 2025 Billing Provider: ANGEL AIKEN MD Common Visit Codes: 46374-OJA/OBS DISCH DAY >30min ANGEL AKIEN MD Feb 25, 2025 13:29
== END 2025-02-25 13:50 | disposition home or self-care (01) | DRG 871 ==
LOC: ER 08:20 → OVERFLOW 13:01 → WEST WING 22:05 → TELE-WESTW 02-22 15:12
PROVIDERS: ADMIT Student in an Organized Health Care Education/Training Program; ATTEND Student in an Organized Health Care Education/Training Program
DX: A41.50 Gram-negative sepsis, unspecified (principal); J15.69 Pneumonia due to other Gram-negative bacteria; K57.31 Diverticulosis of large intestine without perforation or abscess with bleeding; J15.9 Unspecified bacterial pneumonia; E87.20 Acidosis, unspecified; N17.9 Acute kidney failure, unspecified; N39.0 Urinary tract infection, site not specified; D62 Acute posthemorrhagic anemia; I95.1 Orthostatic hypotension; I71.40 Abdominal aortic aneurysm, without rupture, unspecified; G90.89 Other disorders of autonomic nervous system; E86.0 Dehydration; N18.9 Chronic kidney disease, unspecified; E78.5 Hyperlipidemia, unspecified; K59.00 Constipation, unspecified; Z86.79 Personal history of other diseases of the circulatory system; Z86.0100 Personal history of colon polyps, unspecified; Z83.719 Family history of colon polyps, unspecified; Z79.899 Other long term (current) drug therapy
CPT/HCPCS: 36415; 70450; 71045; 73060; 74176; 80048; 80053; 81001; 82270; 82570; 83540; 83550; 83605; 83690; 83880; 84156; 84300; 84484; 85025; 85045; 85610; 85730; 86850; 86860; 86870; 86880; 86900; 86901; 86905; 86906; 86970; 87040; 87086; 93005; 96365; 96375; 99291; G0378; J1956; J2405; J2470; J3490